=== PATIENT | female | born 1995 | race Caucasian/White ===

== ENCOUNTER 2016-08-28 17:44 | Emergency (ER) | payer OTHER ==
[~2016-08-28] VITALS: Ht 149.9 cm; Wt 90.7 kg
[~2016-08-28 17:44] MED LIST: AMLODIPINE10 MG PO; ATENOLOL25 MG PO; AUGMENTIN 875-1 EACH PO; AZITHROMYC100 MG/51 PO; BROMFED DM COU118 M1 PO; GUAIFENESIN-COD10 ML PO; HYDROCORTISONE30 GM TOP; IBUPROFEN800 M1 PO; LOMOTIL 2.5-0.1 EACH PO; MEDROL4 M2 PO; NAPROSYN 500 M500 MG PO; NORFLEX100 MG PO; PRILOSEC OTC20 M1 PO; PROAIR HFA8.5 GM INH; REGLAN10 M1 PO; ROCALTROL0.5 MCG PO; TYLENOL #31 TAB PO; VALTREX1000 MG PO; ZITHROMAX250 M2 PO; ZOFRAN ODT4 M1 SL
[2016-08-28 18:04] VITALS: BP 160/88
[2016-08-28 18:24] LABS: ABSOLUTE BASOPHIL COUNT 0.1 /CUMM (0.0-0.2); ABSOLUTE EOSINOPHIL COUNT 0.2 /CUMM (0.0-0.7); ABSOLUTE LYMPH COUNT 3.7 /CUMM (1.2-3.4); ABSOLUTE MONOCYTE COUNT 0.7 /CUMM (0.10-0.60); BASOPHIL % 0.8 % (0.0-2.0); EOSINOPHIL % 1.7 % (0-5); GRANULOCYTE % 56.5 % (42.2-75.2); HEMATOCRIT 43.9 % (37-47); MEAN CORPUSCULAR HGB 27.7 PG (27.0-31.0); MEAN CORPUSCULAR HGB CONC 33.4 G/DL (33.0-37.0); MEAN PLATELET VOLUME 8.9 FL (7.4-10.4); PLATELET COUNT 265 /CUMM (130-400); RBC DISTRIBUTION WIDTH 14.2 % (11.5-14.5); RED BLOOD CELL CT 5.29 /CUMM (4.20-5.40); WHITE BLOOD CELL COUNT 10.6 /CUMM (4.8-10.8)
--- NOTE | 2016-08-28 19:41 | ED GI/GU/ABDOMINAL COMPLAINT ---
History of Present Illness General Chief Complaint: Nausea, Vomiting, Diarrhea Stated Complaint: +N/V X 2 DAYS Source: patient Exam Limitations: no limitations Vital Signs & Intake/Output Vital Signs & Intake/Output Vital Signs Date Time Temp Pulse Resp B/P Pulse O2 O2 Flow FiO2 Ox Delivery Rate 08/28 1804 97.6 92 18 160/88 99 Room Air Allergies Coded Allergies: NO KNOWN ALLERGIES (11/08/14) Reconcile Medications Albuterol Sulfate (Proair Hfa) 90 MCG HFA.AER.AD 2 PUF INH Q4-6 PRN PRN SOB Amlodipine Besylate (Amlodipine) 10 MG TABLET 1 TAB PO DAILY HTN (Reported) Amoxicillin/Potassium Clav (Augmentin 875-125 Tablet) 1 EACH TABLET 1 TAB PO BID BRONCHITIS Atenolol 25 MG TABLET 1 TAB PO BID HTN (Reported) Azithromycin 100 MG/5 ML SUSP.RECON 12.5 ML PO DAILY BRONCHITIS TAKE A DOUBLE DOSE ON DAY #1 AND THEN 1 DOSE DAILY FOR THE NEXT 4 DAYS. Azithromycin (Zithromax) 250 MG TABLET 1 DP PO AD BRONCHITIS 2 the first day followed by 1 for days 2-5 Brompheniramine/Pseudoephed/Dm (Bromfed Dm Cough Syrup) 118 ML SYRUP 10 ML PO Q6P PRN COUGH/COLD SYMPTOMS Calcitriol (Rocaltrol) 0.5 MCG CAPSULE (Unknown Dose) PO BID KENNY ( Reported) Diphenoxylate HCl/Atropine (Lomotil 2.5-0.025 MG Tablet) 2.5 MG-0.025 MG TABLET 1-2 TAB PO 4 TIMES/DAY PRN DIARRHEA TWENTY TABS... [id number] Hydrocortisone 2.5 % CREAM..G. 1 NEO TOP TID PRN ITCHY NEEDED FOR ITCHY RASH... APPLY TO AFFECTED AREA Ibuprofen 800 MG TABLET 1 TAB PO TID PRN PAIN Methylprednisolone. (Medrol) 4 MG TAB.DS.PK 1 DP PO AD BRONCHITIS 6 on day 1 then reduce by one tablet daily until gone Metoclopramide HCl (Reglan) 10 MG TABLET 1 TAB PO 4 TIMES/DAY PRN NAUSEA 30 minutes before meals and bedtime Naproxen (Naprosyn) 250 MG TABLET 1 TAB PO BID PRN BACK PAIN Omeprazole Magnesium (Prilosec Otc) 20 MG TABLET.DR 1 TAB PO DAILY upset stomach Omeprazole Magnesium (Prilosec Otc) 20 MG TABLET.DR 1 TAB PO DAILY UPSET STOMACH Ondansetron (Zofran Odt) 4 MG TAB.RAPDIS 1 TAB SL TID PRN nausea Ondansetron (Zofran Odt) 4 MG TAB.RAPDIS 1 TAB SL TID PRN NAUSEA Orphenadrine Citrate (Norflex) [address] 1 TAB PO BID PRN BACK SPASMS Robitussin AC (Guaifenesin-Codeine Syrup) 10 ML LIQUID 1 TSP PO TID PRN COUGH SIXTY ML... [id number] Robitussin AC (Guaifenesin-Codeine Syrup) 200 MG-20 MG/10 ML LIQUID 5 ML PO Q6HR PRN COUGH Tylenol With Codeine (Tylenol With Codeine #3 Tablet) 300 MG-30 MG TABLET 1-2 TAB PO Q6 PRN BACK PAIN Tylenol With Codeine (Tylenol With Codeine #3 Tablet) 300 MG-30 MG TABLET 1 TAB PO Q4HR PRN PAIN Valacyclovir HCl (Valtrex) 1,000 MG TABLET 1 TAB PO TID SHINGLES Triage Note: 20 YEAR OLD FEMALE STATES THAT SHE HAS N/V X 2 DAYS, ABD PAIN THAT STARTED AFTER VOMITTING. PT LMP 07/30, UNSURE IF SHE COULD BE Triage Nurses Notes Reviewed? yes ? y Is pt currently ? No Onset: Abrupt Duration: day(s): Timing: recent history Quality/Severity: cramping Radiation: no radiation No Modifying Factors: none HPI: 20-year-old female comes into emergency room for further evaluation of lower abdominal pressure/cramping. Patient reports her last menstrual period was back in July 30. She reports that she may be . Denies any fevers coming back pain. Denies any changes in bowel movement. Denies any urinary symptoms. Denies any vaginal bleeding or discharge. (ESMER CASTILLO) Past History Travel History Traveled to [place] past 21 day No Medical History Any Pertinent Medical History? 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 No (ESMER CASTILLO) Review of Systems Review of Systems Constitutional: Reports: no symptoms. EENTM: Reports: no symptoms. Respiratory: Reports: no symptoms. Cardiovascular: Reports: no symptoms. GI: Reports: see HPI. Genitourinary: Reports: see HPI. Musculoskeletal: Reports: no symptoms. Skin: Reports: no symptoms. Neurological/Psychological: Reports: no symptoms. Hematologic/Endocrine: Reports: no symptoms. Immunologic/Allergic: Reports: no symptoms. All Other Systems: Reviewed and Negative (ESMER CASTILLO) Physical Exam Physical Exam General Appearance: well developed/nourished, no apparent distress, alert Head: atraumatic, normal appearance Eyes: Bilateral: normal appearance, EOMI. Ears, Nose, Throat, Mouth: hearing grossly normal, moist mucous membrane Neck: normal inspection, full range of motion Respiratory: normal breath sounds, no respiratory distress Cardiovascular: regular rate/rhythm Gastrointestinal: soft, tenderness Back: normal inspection Extremities: normal range of motion Neurologic/Psych: awake, alert, oriented x 3, normal gait, normal mood/affect Core Measures ACS in differential dx? No Severe Sepsis Present: No Septic Shock Present: No (ESMER CASTILLO) Progress Differential Diagnosis: appendicitis, biliary colic, colon cancer, cholecystitis , diverticulitis, ectopic , endometritis, gastritis, hepatitis, hernia, ischemic bowel, intrauterine , ovarian cyst, ovarian torsion, PID/ cervicitis, PUD/GERD, perforated viscous, SBO, threatened AB, UTI/pyelo Plan of Care: Orders Procedure Date/time Status Add-on Test (ER Only) 08/29 1911 Active HUMAN BETA HCG TITRE 08/29 1811 Complete URINALYSIS 08/28 1806 Complete HUMAN BETA HCG SCREEN 08/28 1806 Complete COMPREHENSIVE METABOLIC PANEL 08/28 1806 Complete CBC WITHOUT DIFFERENTIAL 08/28 1806 Complete Laboratory Tests 08/28/161906: Urine Color YEL, Urine Clarity CLEAR, Urine pH 6.0, Ur Specific Spring >= 1.030 , Urine Protein 30 H, Urine Ketones 15 H, Urine Nitrite NEG, Urine Bilirubin NEG@ICTO, Urine Urobilinogen 0.2, Ur Leukocyte Esterase NEG, Ur Microscopic SEDIMENT EXAMINED, Urine WBC 3-5 H, Ur Epithelial Cells MOD H, Urine Bacteria MOD H, Urine Mucus FEW, Urine Hemoglobin NEG, Urine Glucose NEG 08/28/161811: Anion Gap 11, Estimated GFR > 60, BUN/Creatinine Ratio 18.0, Glucose 85, Calcium 9.4, Total Bilirubin 1.0, AST 57 H, ALT 94 H, Alkaline Phosphatase 140 H, Total Protein 6.8, Albumin 3.8, Globulin 3.0, Albumin/Globulin Ratio 1.3, Beta HCG, Quant 77.0, Total Beta HCG POSITIVE, CBC w Diff NO MAN DIFF REQ, RBC 5.29, MCV 83.0, MCH 27.7, RDW 14.2, MPV 8.9, Gran % 56.5, Lymphocytes % 34.6, Monocytes % 6.4, Eosinophils % 1.7, Basophils % 0.8, Absolute Granulocytes 6.0, Absolute Lymphocytes 3.7 H, Absolute Monocytes 0.7 H, Absolute Eosinophils 0.2 , Absolute Basophils 0.1, PUBS MCHC 33.4 Initial ED EKG: none (ESMER CASTILLO) Departure Departure Disposition: HOME OR SELF CARE Condition: Stable Clinical Impression Primary Impression: Abdominal pain affecting Referrals: PATIENT HAS NO PRIMARY CARE DR (PCP/Family) Additional Instructions: Follow-up with your PROPOSAL ANALYST doctor for a repeat blood hormone tests and repeat ultrasound in 2 days. Return if any other concerns worsening symptoms. Please go over all results of today's visit with your primary care doctor. Contact your primary care doctor to let them know you were here in the emergency room. There may be nonspecific findings which may not be related to your visit today here in the emergency room but may require further evaluation and chronic monitoring by your primary care doctor. If you had a laceration today the chance of foreign body always remains. You should follow-up with your primary care doctor for recheck in 3-5 days for a wound check. If you had an x-ray done there is a chance that a fracture could have been missed on initial read and you should follow-up with your primary care doctor for repeat x-rays if symptoms persist. If your blood pressure was elevated here in the emergency room please have rechecked by her primary care doctor within the next 48 hours by your primary care doctor. If you were prescribed a narcotic here in the emergency room or any type of controlled substances you're not allowed to drive while taking this medication or operate any type of heavy machinery. Narcotics can make you feel lightheaded dizziness nausea and can cause constipation. You may need to order picker/assembler a stool softener. Thank you for choosing [facility] emergency room. Please return to the emergency room immediately if you have any other concerns worsening of symptoms. Departure Forms: Customer Survey General Discharge Information Comments 08/28/2016 9:51:37 PM Patient clinically looks well. Nontoxic-appearing. In no apparent distress. Patient told to see her PROPOSAL ANALYST doctor for repeat beta titer in 2 days. No acute abdomen on exam. Return if any other concerns worsening symptoms. (NEVILLE LOPEZ,ESMER) PA/DERMATOLOGY SPECIALIST Co-Sign Statement Statement: ED Attending supervision documentation- [] I saw and evaluated the patient. I have also reviewed all the pertinent lab results and diagnostic results. I agree with the findings and the plan of care as documented in the PA's/DERMATOLOGY SPECIALIST's documentation. [X] I have reviewed the ED Record and agree with the PA's/DERMATOLOGY SPECIALIST's documentation. [] Additions or exceptions (if any) to the PAs/DERMATOLOGY SPECIALIST's note and plan are summarized below: [] (SHAE CHEN,KRUNAL)
--- NOTE | 2016-08-28 20:26 | ULTRASOUND REPORT ---
EXAMINATION: ULTRASOUND OF THE PELVIS CLINICAL INFORMATION: Lower abdominal pain. Question ectopic. COMPARISON: None. TECHNIQUE: Transabdominal and transvaginal pelvic ultrasound. A transvaginal study was performed in addition to the transabdominal study which did not yield an adequate examination of the uterus and ovaries due to superimposed distended gas-filled loops of bowel. FINDINGS: The uterus is normal in size and appearance, measuring 7.8 x 4.2 x 1.9 cm longitudinally, anteroposteriorly and transversely. The endometrial stripe thickness is homogeneously prominent echogenic measuring up to 24 mm. No discrete lesion. No focal myometrial mass is seen. The cervical length is normal measuring 1.6 cm. Both ovaries identified. Increased in volume 25 mL on the right and 22 mL on the left simple secondary to unilocular cysts likely follicles. The right measures up to 3.2 cm and on the left 2.2 cm. No adnexal mass or free fluid collection seen. IMPRESSION: Thickened endometrium. No evidence for any intrauterine . No gestational sac or any pseudogestational sac. Correlate with hCG levels. No adnexal mass to indicate definite ectopic. This exam does not exclude the presence of an ectopic . Consider short interval follow-up as warranted clinically. Please note endometrium is thickened homogeneously and is diffusely echogenic which is nonspecific and could represent an exuberant late secretory phase of the menstrual cycle.
== END 2016-08-28 21:08 ==
LOC: ERH 17:44
PROVIDERS: Emergency Medicine
DX: O26.90 Pregnancy related conditions, unspecified, unspecified trimester (principal); R10.9 Unspecified abdominal pain
CPT/HCPCS: 76817; 81001

== ENCOUNTER 2016-11-15 23:49 | Emergency (ER) | payer OTHER ==
[~2016-11-15] VITALS: Ht 149.9 cm; Wt 90.7 kg
--- NOTE | 2016-11-16 00:16 | ED SKIN/ALLERGY COMPLAINT ---
History of Present Illness General Chief Complaint: Allergy Symptoms Stated Complaint: DIFF BREATHING ? ALLERGIC REACTION Source: patient Exam Limitations: no limitations Vital Signs & Intake/Output Vital Signs & Intake/Output ED Intake and Output 11/17 0000 11/16 1200 Intake Total Output Total 300 Balance -300 Output, Urine 300 Patient 200 lb Weight Allergies Coded Allergies: NO KNOWN ALLERGIES (11/08/14) Triage Note: PT TO ED C/O ?ALLERGIC REACTION TO A RED HOT CHILI PEPPER IN [employer] FOOD. ATR AT 2130 OR 2200. THROAT FEELS LIKE IT'S CLOSING. BODY ITCHES. O2 SAT 94% ON RA. PLACED ON 2L NC. O2 SAT TO 97% Triage Nurses Notes Reviewed? yes Onset: Abrupt Duration: hour(s): (2), getting worse Timing: recent history Severity: moderate, severe Possible Factors: foods No Modifying Factors: none : No Patient currently breastfeeds: No HPI: 20-year-old female comes in with complaints of difficulty breathing and allergic reaction. Patient reports that tonight she ate some [place] food with a new sauce as well as a hot chili pepper. Shortly after she broke out a rash and had difficulty breathing with wheezing. She denies any past medical history. No history of asthma. Nonsmoker. no history of any lung issues. The rash is gone progressively worse. She has not taken anything for it. (ESMER CASTILLO) Reconcile Medications Albuterol Sulfate (Ventolin Hfa) 90 MCG HFA.AER.AD 2 PUF INH Q4-6 PRN PRN WHEEZE Albuterol Sulfate (Proair Hfa) 90 MCG HFA.AER.AD 2 PUF INH Q4-6 PRN PRN SOB Amlodipine Besylate (Amlodipine) 10 MG TABLET 1 TAB PO DAILY HTN (Reported) Amoxicillin/Potassium Clav (Augmentin 875-125 Tablet) 1 EACH TABLET 1 TAB PO BID BRONCHITIS Atenolol 25 MG TABLET 1 TAB PO BID HTN (Reported) Azithromycin 100 MG/5 ML SUSP.RECON 12.5 ML PO DAILY BRONCHITIS TAKE A DOUBLE DOSE ON DAY #1 AND THEN 1 DOSE DAILY FOR THE NEXT 4 DAYS. Azithromycin (Zithromax) 250 MG TABLET 1 DP PO AD BRONCHITIS 2 the first day followed by 1 for days 2-5 Brompheniramine/Pseudoephed/Dm (Bromfed Dm Cough Syrup) 118 ML SYRUP 10 ML PO Q6P PRN COUGH/COLD SYMPTOMS Calcitriol (Rocaltrol) 0.5 MCG CAPSULE (Unknown Dose) PO BID KENNY ( Reported) Diphenoxylate HCl/Atropine (Lomotil 2.5-0.025 MG Tablet) 2.5 MG-0.025 MG TABLET 1-2 TAB PO 4 TIMES/DAY PRN DIARRHEA TWENTY TABS... [id number] Epinephrine (Epipen 2-Camilo) 0.3 MG/0.3 ML AUTO.INJCT 1 INJ IM X1 PRN ALLERGIC REACTION Hydrocortisone 2.5 % CREAM..G. 1 NEO TOP TID PRN ITCHY NEEDED FOR ITCHY RASH... APPLY TO AFFECTED AREA Hydroxyzine Pamoate 50 MG CAPSULE 1 CAP PO 4 TIMES/DAY allergic reaction Ibuprofen 800 MG TABLET 1 TAB PO TID PRN PAIN Methylprednisolone. (Medrol) 4 MG TAB.DS.PK 1 DP PO AD BRONCHITIS 6 on day 1 then reduce by one tablet daily until gone Metoclopramide HCl (Reglan) 10 MG TABLET 1 TAB PO 4 TIMES/DAY PRN NAUSEA 30 minutes before meals and bedtime Naproxen (Naprosyn) 250 MG TABLET 1 TAB PO BID PRN BACK PAIN Omeprazole Magnesium (Prilosec Otc) 20 MG TABLET.DR 1 TAB PO DAILY upset stomach Omeprazole Magnesium (Prilosec Otc) 20 MG TABLET.DR 1 TAB PO DAILY UPSET STOMACH Ondansetron (Zofran Odt) 4 MG TAB.RAPDIS 1 TAB SL TID PRN nausea Ondansetron (Zofran Odt) 4 MG TAB.RAPDIS 1 TAB SL TID PRN NAUSEA Orphenadrine Citrate (Norflex) [address] 1 TAB PO BID PRN BACK SPASMS Prednisone 50 MG TABLET 1 TAB PO DAILY allergic reaction Robitussin AC (Guaifenesin-Codeine Syrup) 10 ML LIQUID 1 TSP PO TID PRN COUGH SIXTY ML... [id number] Robitussin AC (Guaifenesin-Codeine Syrup) 200 MG-20 MG/10 ML LIQUID 5 ML PO Q6HR PRN COUGH Tylenol With Codeine (Tylenol With Codeine #3 Tablet) 300 MG-30 MG TABLET 1-2 TAB PO Q6 PRN BACK PAIN Tylenol With Codeine (Tylenol With Codeine #3 Tablet) 300 MG-30 MG TABLET 1 TAB PO Q4HR PRN PAIN Valacyclovir HCl (Valtrex) 1,000 MG TABLET 1 TAB PO TID SHINGLES (EMILIANA CHEN,MIRIAM Epstein) Past History Travel History Traveled to [place] past 21 day No Medical History Any Pertinent Medical History? 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 No (ESMER CASTILLO) Review of Systems Review of Systems Constitutional: Reports: no symptoms. EENTM: Reports: no symptoms. Respiratory: Reports: no symptoms. Cardiovascular: Reports: no symptoms. GI: Reports: no symptoms. Genitourinary: Reports: no symptoms. Musculoskeletal: Reports: no symptoms. Skin: Reports: see HPI. Neurological/Psychological: Reports: no symptoms. Hematologic/Endocrine: Reports: no symptoms. Immunologic/Allergic: Reports: see HPI. All Other Systems: Reviewed and Negative (ESMER CASTILLO) Physical Exam Physical Exam General Appearance: well developed/nourished, moderate distress Head: atraumatic Eyes: Bilateral: normal appearance, EOMI. Ears, Nose, Throat: normal pharynx, hearing grossly normal Neck: normal inspection Respiratory: decreased breath sounds, rhonchi, wheezing, respiratory distress ( moderate) Cardiovascular: regular rate/rhythm Back: normal inspection Extremities: normal inspection, normal range of motion, no edema Neurologic/Psych: awake, alert, oriented x 3, normal mood/affect Skin: intact, rash Skin Problem Location: generalized Skin Problem Character: urticarial Lymphatic: no anterior cervical tonya (ESMER CASTILLO) Progress Differential Diagnosis: abscess/cellulitis, allergic reaction, anaphylaxis, angioedema, asthma, contact dermatitis, drug reaction Plan of Care: Orders Procedure Date/time Status Telemetry/Electric Solderer 11/16 14 Active Hand-Off Endorsed To: MIRIAM HOPSON MD Endorsed Time: 38 Pending: other (observation) (ESMER CASTILLO) Departure Departure Disposition: STILL A PATIENT Condition: Stable Clinical Impression Primary Impression: Anaphylaxis Referrals: PATIENT HAS NO PRIMARY CARE DR (PCP/Family) Departure Forms: Customer Survey General Discharge Information (ESMER CASTILLO) Departure Prescriptions: Current Visit Scripts Hydroxyzine Pamoate 1 CAP PO 4 TIMES/DAY #90 CAP Ref 1 Prednisone 1 TAB PO DAILY #5 TAB Epinephrine (Epipen 2-Camilo) 1 INJ IM X1 PRN ALLERGIC REACTION #1 KIT Albuterol Sulfate (Ventolin Hfa) 2 PUF INH Q4-6 PRN PRN WHEEZE #1 INHAL Ref 1 Comments 6, 3:30am.... evaluated and discussed with patient... she is feeling better, and would like to sleep until the morning. PA/RESEARCH PROGRAM ASSISTANT Co-Sign Statement Statement: ED Attending supervision documentation- [x] I saw and evaluated the patient. I have also reviewed all the pertinent lab results and diagnostic results. I agree with the findings and the plan of care as documented in the PA's/RESEARCH PROGRAM ASSISTANT's documentation. [] I have reviewed the ED Record and agree with the PA's/RESEARCH PROGRAM ASSISTANT's documentation. [] Additions or exceptions (if any) to the PAs/RESEARCH PROGRAM ASSISTANT's note and plan are summarized below: [] (EMILIANA CHEN,MIRIAM Epstein) Critical Care Note Critical Care Note Critical Care Time: 30-74 min (40) (ESMER CASTILLO) Critical Care Note Critical Care Time: 30-74 min (40) (ESMER CASTILLO)
[2016-11-16] MEDS ORDERED: HYDROXYZINE PAM50 M1 PO (03:17)
[2016-11-16] MEDS ORDERED: VENTOLIN HFA18 GM INH (03:17)
[2016-11-16] MEDS ORDERED: EPIPEN 2-P0.3 MG/0.3 IM (03:17)
[2016-11-16] MEDS ORDERED: PREDNISONE50 M1 PO (03:17)
[2016-11-16 05:49] VITALS: BP 160/98
== END 2016-11-16 06:20 ==
LOC: ERH 23:49
DX: T78.2XXA Anaphylactic shock, unspecified, initial encounter (principal); R21 Rash and other nonspecific skin eruption; R06.2 Wheezing
CPT/HCPCS: 1263; 96372; 96374; 96375; 99291; J0171; J1200; J2930

== ENCOUNTER 2016-12-10 06:00 | Emergency (ER) | payer OTHER ==
[~2016-12-10] VITALS: Ht 149.9 cm; Wt 90.7 kg
[~2016-12-10 06:00] MED LIST changes: +EPIPEN 2-P0.3 MG/0.3 IM; +HYDROXYZINE PAM50 M1 PO; +PREDNISONE50 M1 PO; +VENTOLIN HFA18 GM INH
--- NOTE | 2016-12-10 06:07 | ED SKIN/ALLERGY COMPLAINT ---
History of Present Illness General Chief Complaint: Allergy Symptoms Stated Complaint: PT STATES ALLERGIC MED REACTION 02 SAT 96 HIVES Source: patient, old records Exam Limitations: no limitations Vital Signs & Intake/Output Vital Signs & Intake/Output Vital Signs Date Time Temp Pulse Resp B/P B/P Pulse O2 O2 Flow FiO2 Mean Ox Delivery Rate 12/10 0757 98.1 102 15 155/83 97 Room Air 12/10 0625 170/92 12/10 0625 98 Room Air 12/10 0618 97 12/10 0607 98.4 120 20 97 Room Air Allergies Coded Allergies: amoxicillin (Severe, WHEEZING, ENTIRE BODY RASH 12/10/16) codeine (Severe, WHEEZING, ENTIRE BODY RASH 12/10/16) Triage Nurses Notes Reviewed? yes Onset: Abrupt Duration: hour(s): (1) Timing: single episode today Severity: moderate, severe Possible Factors: ABX No Modifying Factors: none Associated Symptoms: hives, rash : No Patient currently breastfeeds: No HPI: This is a 20-year-old female who presents to the ER chief complaint of difficulty breathing, hives, itching which started one hour prior to arrival. She states that she took a dose of amoxicillin and Tylenol 3 which she was prescribed for her teeth. No history of asthma but she started wheezing. She complains of some chest tightness or difficulty swallowing. History of an allergic reaction to a combination of amoxicillin and Tylenol 3. At that time she had eaten [place] food at the same time assumed it was Croatian food. During that course of antibiotic she stopped after the allergic reaction. Today is her first dose of this course of amoxicillin for pain in her left lower molars. (SHAE CHEN,KRUNAL) Reconcile Medications Amlodipine Besylate (Amlodipine) 10 MG TABLET 1 TAB PO DAILY HTN (Reported) Amoxicillin/Potassium Clav (Augmentin 875-125 Tablet) 1 EACH TABLET 1 TAB PO BID BRONCHITIS Atenolol 25 MG TABLET 1 TAB PO BID HTN (Reported) Calcitriol (Rocaltrol) 0.5 MCG CAPSULE (Unknown Dose) PO BID KENNY ( Reported) Clindamycin HCl (Cleocin HCl) 300 MG CAPSULE 1 CAP PO TID dental infection Epinephrine (Epipen 2-Camilo) 0.3 MG/0.3 ML AUTO.INJCT 1 INJ IM X1 PRN ALLERGIC REACTION Omeprazole Magnesium (Prilosec Otc) 20 MG TABLET.DR 1 TAB PO DAILY upset stomach Prednisone 10 MG TABLET 1 TAB PO DAILY allergic reaction TAKE 3 TABS FOR 3 DAYS THEN TAKE 2 TABS FOR 3 DAYS THEN TAKE 1 TAB FOR 3 DAYS Tylenol With Codeine (Tylenol With Codeine #3 Tablet) 300 MG-30 MG TABLET 1-2 TAB PO Q6 PRN BACK PAIN (MARTA CHEN,TOM Stapleton) Past History Travel History Traveled to [place] past 21 day No Medical History Any Pertinent Medical History? see below for history Neurological: NONE EENT: NONE Cardiovascular: hypertension Respiratory: NONE Gastrointestinal: NONE Hepatic: NONE Renal: NONE Musculoskeletal: RICKETS Psychiatric: NONE Endocrine: vitamin D deficiency Blood Disorders: NONE Cancer(s): NONE SAILBOAT CAPTAIN/Reproductive: NONE Surgical History Surgical History: TONSILLECTOMY Psychosocial History What is your primary language Slovak Tobacco Use: Refused to answer Family History Hx Contributory? No (KRUNAL KAUFMAN MD) Review of Systems Review of Systems Constitutional: Denies: chills, fever. EENTM: Reports: no symptoms. Respiratory: Reports: short of breath. Denies: cough, sputum production. Cardiovascular: Reports: chest pain. GI: Denies: abdominal pain, nausea, vomiting. Genitourinary: Reports: no symptoms. Musculoskeletal: Reports: no symptoms. Skin: Reports: erythema, rash. Neurological/Psychological: Denies: confusion. Hematologic/Endocrine: Denies: bruising, bleeding. Immunologic/Allergic: Denies: splenectomy. All Other Systems: Reviewed and Negative (KRUNAL KAUFMAN MD) Physical Exam Physical Exam General Appearance: well developed/nourished, alert, awake, anxious, mild distress, moderate distress, obese Head: atraumatic Eyes: Bilateral: PERRL, EOMI. Ears, Nose, Throat: normal pharynx, normal ENT inspection, hearing grossly normal Neck: normal inspection, supple Respiratory: normal breath sounds Cardiovascular: regular rate/rhythm Peripheral Pulses: 2+ radial (R), 2+ radial (L) Gastrointestinal: soft, non-tender Back: normal inspection Extremities: normal inspection, normal range of motion, no edema Neurologic/Psych: awake, alert, oriented x 3, normal mood/affect Skin: intact, normal color, rash Skin Problem Location: generalized Skin Problem Character: erythema Lymphatic: no anterior cervical tonya (KRUNAL KAUFMAN MD) Progress Differential Diagnosis: asthma, contact dermatitis, drug reaction Plan of Care: Orders Procedure Date/time Status RT ED ORDERS 12/10 06 Active Hand-Off Endorsed To: TOM LOZANO MD Endorsed Time: 07 Pending: other (REEVALUATION) (KRUNAL KAUFMAN MD) Comments: Patient continues to do well. Her lungs are clear to auscultation with good air entry. Her oxygen saturation remains at 99%. Patient advised that she cannot take penicillin or amoxicillin anymore. Patient will be discharged on steroids and clindamycin. (TOM LOZANO MD) Departure Departure Condition: Stable Clinical Impression Primary Impression: Allergic reaction caused by a drug Referrals: PATIENT HAS NO PRIMARY CARE DR (PCP/Family) Departure Forms: Customer Survey General Discharge Information (KRUNAL KAUFMAN MD) Departure Disposition: HOME OR SELF CARE Additional Instructions: do not take penecillin/amoxicillin anymore take clindamycin as prescribed take benadryl as needed take steroids as prescribed return for any concerns Prescriptions: Current Visit Scripts Prednisone 1 TAB PO DAILY #18 TAB TAKE 3 TABS FOR 3 DAYS THEN TAKE 2 TABS FOR 3 DAYS THEN TAKE 1 TAB FOR 3 DAYS Clindamycin HCl (Cleocin HCl) 1 CAP PO TID #21 CAP (TOM LOZANO MD) Condition: Stable Clinical Impression Primary Impression: Allergic reaction caused by a drug Referrals: PATIENT HAS NO PRIMARY CARE DR (PCP/Family) Departure Forms: Customer Survey General Discharge Information
[2016-12-10] MEDS ORDERED: PREDNISONE10 M2 PO (09:12)
[2016-12-10] MEDS ORDERED: CLEOCIN HCL300 M1 PO (09:12)
[2016-12-10 09:58] VITALS: BP 146/85
== END 2016-12-10 09:58 ==
LOC: ERH 06:00
DX: T50.991A Poisoning by other drugs, medicaments and biological substances, accidental (unintentional), initial encounter (principal); R07.89 Other chest pain
CPT/HCPCS: 1263; 96374; 96375; J1200; J2405; J2930